=== PATIENT | female | born 1960 | race Hispanic/Latino ===

== ENCOUNTER 2025-04-03 09:44 | Emergency (ER) | payer OTHER ==
[~2025-04-03] VITALS: Ht 152.4 cm; Wt 54.4 kg
[2025-04-03 09:55] VITALS: TEMP 97.7
[2025-04-03] MEDS: ONDANSETRON HCL INJ 2MG/ML 2ML 2 MG/ML VIAL IV PRN (10:26)
[2025-04-03] MEDS: SODIUM CHLORIDE 0.9% 1000ML 1,000 ML IV STA (10:26)
[2025-04-03] MEDS: DICYCLOMINE HCL 20 MG/2 ML VIAL IM ONE (10:30)
[2025-04-03 10:31] LABS: LEUKOCYTE ESTERASE ,URINE NEGATIVE (NEGATIVE)
[2025-04-03 10:32] LABS: PROTEIN,URINE DIPSTICK NEGATIVE (NEGATIVE); URINE UROBILINOGEN 0.2 mg/dL (0.2 - 1)
[2025-04-03 10:38] LABS: EPITHELIAL CELLS,URINE FEW /LPF; WBC,URINE (MAN) 0-5 /HPF (0-5)
[2025-04-03 10:40] LABS: BASOPHILS % 0.6 % (0.0-1.0); EOSINOPHILS % 0.7 % (0.0-6.0); LYMPHOCYTES % 35.8 % (18.0-39.1); MONOCYTES % 10.0 % (4.4-11.3); NEUTROPHILS % 52.8 % (38.7-80.0); RED CELL DISTRIBUTION WIDTH 12.8 % (11.7-14.4)
[2025-04-03 11:15] LABS: EST GLOMERULAR FILTRATION RATE 102.0 ML/MIN (>=60)
[2025-04-03] MEDS ORDERED: IOPAMIDOL 370 MG/ML 100 ML INFUS..BTL INJ ONE (11:39)
[2025-04-03 12:04] VITALS: PULSE 86; RESP 19
[2025-04-03] MEDS ORDERED: DICYCLOMINE HCL20 MG PO (12:54)
[2025-04-03 13:04] VITALS: BP 100/68; PULSE 74; RESP 18; TEMP 97.8; O2SAT 100
== END 2025-04-03 13:00 | disposition home or self-care (01) ==
LOC: ER 09:53
DX: R10.84 Generalized abdominal pain (principal); K59.00 Constipation, unspecified; R11.2 Nausea with vomiting, unspecified; I10 Essential (primary) hypertension; E11.9 Type 2 diabetes mellitus without complications; E78.5 Hyperlipidemia, unspecified
CPT/HCPCS: 36415; 74177; 80053; 81001; 83690; 85025; 99284; J0500; J2405; J7030; Q9967